=== PATIENT | male | born 1975 | race African-American/Black ===

== ENCOUNTER 2019-09-26 08:12 | Emergency (ER) | payer BC, OTHER ==
[~2019-09-26] VITALS: Ht 170.2 cm; Wt 89.8 kg
[2019-09-26 08:35] LABS: ABSOLUTE NEUTROPHILS 5.3 thou/uL (1.4-8.2); BASOPHILS 0.5 % (0.0-2.0); EOSINOPHILS 0.4 % (0.0-3.0); HEMOGLOBIN 15.5 gm/dL (14.0-18.0); MCH 30.8 pg (26.0-34.0); MCHC 34.4 g/dL (28.0-37.0); MCV 89.5 fL (80.0-100.0); MONOCYTES 5.9 % (1.0-8.0); PLATELET COUNT 237 thou/uL (150-400); POLYS 74.2 % (36.0-66.0); RBC 5.03 mil/uL (4.50-6.00); RDW 14.3 % (10.5-14.5); WBC 7.1 thou/uL (4.0-11.0)
[2019-09-26 08:43] LABS: ANION GAP 7 mmol/L (7-16); BUN 12 mg/dL (7-18); CALCIUM 9.1 mg/dL (8.5-10.1); CHLORIDE 98 mmol/L (98-107); CO2 32 mmol/L (21-32); GLUCOSE 99 mg/dL (74-106); POTASSIUM 3.8 mmol/L (3.5-5.1); SODIUM 137 mmol/L (136-145)
[2019-09-26 08:51] LABS: TROPONIN-I <0.06 ng/mL (<0.06)
[2019-09-26] MEDS ORDERED: PRILOSEC OTC20 MG PO (10:57)
[2019-09-26 11:30] VITALS: BP 122/64
--- NOTE | 2019-09-27 08:08 | EKG ---
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: : 1975 Requested By: Carmela Ross Order Number: [id number] MD: Patrick Levine Measurements Intervals Agenda Rate: 87 P: 67 KS: 185 QRS: 42 QRSD: 77 T: 15 QT: 355 QTc: 427 Interpretive Statements Sinus rhythm Poor R wave progression Compared to ECG 05/11/1998 12:30:00 No significant change was found Electronically Signed On 09-27-2019 8:07:59 CDT by Patrick Levine [email or web address] <ELECTRONICALLY SIGNED> By: Patrick Levine MD, FAC 07/09/10 [phone] 6 Patrick Levine MD, [facility] /EPI
== END 2019-09-26 11:30 | disposition home or self-care (01) ==
LOC: ER 08:12
PROVIDERS: Emergency Medicine
DX: K21.9 Gastro-esophageal reflux disease without esophagitis (principal); E78.5 Hyperlipidemia, unspecified; Z88.8 Allergy status to other drugs, medicaments and biological substances